=== PATIENT | male | born 1945 | race Caucasian/White ===

== ENCOUNTER 2018-08-25 08:12 | Emergency (ER) | payer OTHER ==
[2018-08-25] MEDS ORDERED: DOCUSATE SODIUM 100 MG CAP PO ONE (08:49)
--- NOTE | 2018-08-25 08:53 | EDPHY ---
H & P Time Seen by Provider: 08/25/18 08:43 HPI/ROS: CHIEF COMPLAINT: Constipated HISTORY OF PRESENT ILLNESS: Patient is a 72-year-old male presents emergency department reporting constipation. Patient takes Vicodin most every day for chronic back pain. This is been ongoing over the past 10 years. He has not had a normal bowel movement for 10 days. He has small bowel movement yesterday. Patient feels some slight rectal pressure. He has mild abdominal discomfort. No fevers or chills. No nausea vomiting. No difficulty with urination. REVIEW OF SYSTEMS: 10 systems were reveiwed and are negative with the exception of the elements mentioned in the history of present illness. Past Medical/Surgical History: Includes spinal stenosis, arthritis Past surgical history: Includes cholecystectomy Smoking Status: Never smoked Physical Exam: Vitals noted GENERAL: Well-appearing, in no acute distress, alert. HEENT: Eyes normal to inspection, normal pharynx, no signs of dehydration. NECK: Normal, supple. RESPIRATORY: Clear to auscultation bilaterally, no rales, rhonchi or wheezing. CVS: Regular rate and rhythm, no rubs, murmurs, or gallops. ABDOMEN: Soft, nontender, nondistended, no organomegaly. Normal bowel sounds. Benign BACK: Normal to inspection, no CVA tenderness. SKIN: Normal color, no rash, warm, dry. No pallor. EXTREMITIES: No pedal edema, no joint swelling. NEURO/PSYCH: Alert and oriented, normal mood and affect, normal motor sensory exam. Constitutional: Initial Vital Signs Temperature (C) 36.5 C 08/25/18 08:16 Heart Rate 81 08/25/18 08:16 Respiratory Rate 17 08/25/18 08:16 Blood Pressure 145/102 H 08/25/18 08:16 O2 Sat (%) 95 08/25/18 08:16 O2 Delivery Mode Room Air Allergies/Adverse Reactions: No Known Allergies Allergy (Verified 08/25/18 08:15) Home Medications: Medication Instructions Recorded Dyclonine HCl 08/31/13 Vicodin 5/500 08/31/13 Medical Decision Making ED Course/Re-evaluation: In the emergency department I discussed possible etiologies with the patient. I answered all his questions. He had a benign abdominal exam. Patient was given Colace 100 mg orally. An enema was ordered. Patient was given soapsuds enema. He tolerated the procedure well. Post enema the patient had a bowel movement. He felt much better. On recheck his abdomen was soft, nontender and nondistended. Patient was given warnings prior to leaving. He will return with worsening symptoms. Differential Diagnosis: My differential includes but is not limited to constipation, small-bowel obstruction, perforation, intussusception, volvulus, mass, malignancy, fissure, hemorrhoid - Data Points Medications Given: Discontinued Medications Docusate Sodium (Colace) 100 mg PO EDNOW ONE Stop: 08/25/18 08:50 Last Admin: 08/25/18 08:55 Dose: 100 mg Departure - Departure Disposition: Home, Routine, Self-Care Clinical Impression: Abdominal pain Qualifiers: Abdominal location: generalized Qualified Code(s): R10.84 - Generalized abdominal pain Constipation Qualifiers: Constipation type: unspecified constipation type Qualified Code(s): K59.00 - Constipation, unspecified Condition: Good Instructions: Constipation (ED), Abdominal Pain (ED) Additional Instructions: Return with increasing pain, fever, vomiting or any other concerns. Continue to use Fleet's enemas as needed. Take Metamucil twice daily. Referrals: HAZEL TAN [Primary Care Provider] - 3-4 days, if not improved
[2018-08-25] MEDS ORDERED: PEG 3350/NA SULF,BICARB,CL/KCL (GAVILYTE-G) 4000 ML BTL PO ONE (09:29)
[2018-08-25 10:25] VITALS: BP 134/87
== END 2018-08-25 10:24 | disposition home or self-care (01) ==
DX: R10.84 Generalized abdominal pain (principal); K59.00 Constipation, unspecified